=== PATIENT | male | born 1990 | race Hispanic/Latino ===

== ENCOUNTER 2019-04-25 14:34 | Emergency (ER) | payer SELFPAY ==
[~2019-04-25] VITALS: Ht 177.8 cm; Wt 125.7 kg
[2019-04-25] MEDS ORDERED: SODIUM CHLORIDE 0.9% 1000ML 1,000 ML IV STA (15:03)
[2019-04-25] MEDS ORDERED: INSULIN REGULAR, HUMAN 100 UNIT/1 ML 3ML VIAL SQ ONE (15:15)
[2019-04-25] MEDS ORDERED: SODIUM CHLORIDE 0.9% 1000ML 1,000 ML ONE (15:22)
[2019-04-25] MEDS ORDERED: INSULIN REGULAR, HUMAN 100 UNIT/1 ML 3ML VIAL ONE (15:23)
[2019-04-25] MEDS ORDERED: CLONIDINE HCL 0.2 MG TAB PO ONE (15:45)
[2019-04-25 16:28] VITALS: BP 110/66
== END 2019-04-25 16:37 | disposition home or self-care (01) ==
LOC: FSED 14:34
DX: R73.9 Hyperglycemia, unspecified (principal); I10 Essential (primary) hypertension
CPT/HCPCS: 80048; 81003; 85025; 96372; 99283; J1817; J7030